=== PATIENT | female | born 1955 ===

== ENCOUNTER 2024-12-31 10:45 | Inpatient (IN) | payer OTHER ==
[~2024-12-31] VITALS: Ht 160 cm; Wt 75.7 kg
[2024-12-31] MEDS ORDERED: HYZAAR 100-12.1 EACH PO (14:43)
[2024-12-31] MEDS ORDERED: TOPROL XL50 M1 PO (14:43)
[2024-12-31] MEDS ORDERED: NORVASC5 MG PO (14:43)
[2024-12-31] MEDS ORDERED: WELLBUTRIN XL150 M1 PO (14:44)
[2024-12-31] MEDS ORDERED: CLONAZEPAM0.5 M1 PO (14:44)
[2024-12-31] MEDS ORDERED: GLIMEPIRIDE1 MG (14:44)
[2024-12-31 14:45] VITALS: BP 145/75
[2024-12-31] MEDS ORDERED: NAPR500T14 PO (14:45)
[2024-12-31] MEDS ORDERED: PROTONIX40 MG PO (14:45)
[2024-12-31 14:50] VITALS: BP 170/87
[2024-12-31 15:16] LABS: RH POSITIVE
[2025-01-06] MEDS ORDERED: HEMOSTATIC MATRIX 1 KIT KIT TOP ONE (12:25)
[2025-01-06] MEDS ORDERED: SURGIFLO APPLICATOR 1 EACH APPL TOP ONE (12:25)
[2025-01-06] MEDS ORDERED: METRONIDAZOLE/SODIUM CHLORIDE 500 MG/100 ML PIGGYBACK IV ONE (12:42)
[2025-01-06] MEDS ORDERED: CEFAZOLIN SODIUM 1,000 MG VIAL ONE (12:43)
[2025-01-06] MEDS ORDERED: MORPHINE SULFATE 4 MG/ML VIAL IV ONE ×3 (12:55→14:05)
[2025-01-06] MEDS ORDERED: KETOROLAC TROMETHAMINE 30 MG VIAL IV NR (13:00)
[2025-01-06] MEDS ORDERED: MORPHINE SULFATE 4 MG/ML CARTRIDGE IV PRN (13:00)
[2025-01-06] MEDS ORDERED: RINGERS SOLUTION,LACTATED 1,000 ML IV SCH (13:00)
[2025-01-06] MEDS ORDERED: SIMETHICONE 125 MG CAPSULE PO SCH (13:00)
[2025-01-06] MEDS ORDERED: KETOROLAC TROMETHAMINE 30 MG VIAL ONE (14:25)
[2025-01-06 14:54] LABS: HEMATOCRIT 35.2 % (36.0-45.00); HEMOGLOBIN 11.8 g/dL (12.0-15.00); MEAN CELL VOLUME 89.2 fL (80.00-100.00); MEAN CORPUSCULAR HEMOGLOBIN 29.9 pg (27.00-32.0); MEAN CORPUSCULAR HGB CONC 33.5 g/dl (32.0-36.0); PLATELET COUNT 161 K/uL (150-450); RED BLOOD COUNT 3.95 M/uL (4.00-6.00); RED CELL DISTRIBUTION WIDTH 14.7 % (11.5-14.5)
[2025-01-06 15:27] LABS: ALBUMIN 3.3 gm/dL (3.4-5.0); CALCIUM 8.8 mg/dL (8.5-10.1); CREATININE SERUM 1.19 mg/dL (0.55-1.02); GFR 44.84; PHOSPHOROUS 3.3 mg/dL (2.5-4.9); POTASSIUM 4.42 mEq/L (3.5-5.1)
[2025-01-06] MEDS ORDERED: DEXTROSE 50 % IN WATER 0.5 G/ML VIAL IV PRN (15:45)
[2025-01-06] MEDS ORDERED: INSULIN LISPRO 1,000 UNIT/10 ML UNITS SUBCUTANEO PRN (15:45)
[2025-01-06] MEDS ORDERED: ENALAPRILAT DIHYDRATE 1.25 MG/ML VIAL IV PRN (15:45)
[2025-01-06] MEDS ORDERED: CEFAZOLIN SODIUM 1,000 MG VIAL IV SCH (17:00)
[2025-01-06] MEDS ORDERED: METOCLOPRAMIDE HCL 5 MG/ML VIAL IV SCH (17:00)
[2025-01-06 18:00] VITALS: BP 145/75; O2SAT 96
[2025-01-06] MEDS ORDERED: ACETAMINOPHEN 500 MG GEL..CAP PO SCH (18:00)
[2025-01-06] MEDS ORDERED: CELECOXIB 200 MG CAPSULE PO SCH (21:00)
[2025-01-06] MEDS ORDERED: GABAPENTIN 300 MG CAPSULE PO SCH (21:00)
[2025-01-06] MEDS ORDERED: DOCUSATE SODIUM 100MG CAP PO SCH (21:00)
[2025-01-06] MEDS ORDERED: AMLODIPINE BESYLATE 5 MG TABLET PO SCH (21:00)
[2025-01-06] MEDS ORDERED: FAMOTIDINE/PF 20 MG/2 ML VIAL IV PUSH SCH (21:00)
[2025-01-07] VITALS: BP 146/63; O2SAT 97
[2025-01-07 01:45] LABS: HEMATOCRIT 32.3 % (36.0-45.00); MEAN CORPUSCULAR HEMOGLOBIN 30.4 pg (27.00-32.0); MEAN CORPUSCULAR HGB CONC 34.1 g/dl (32.0-36.0); PLATELET COUNT 159 K/uL (150-450); RED BLOOD COUNT 3.63 M/uL (4.00-6.00); RED CELL DISTRIBUTION WIDTH 14.6 % (11.5-14.5)
[2025-01-07 02:09] LABS: ALBUMIN 2.8 gm/dL (3.4-5.0); CALCIUM 8.2 mg/dL (8.5-10.1); CREATININE SERUM 1.1 mg/dL (0.55-1.02); GFR 49.1; PHOSPHOROUS 4.1 mg/dL (2.5-4.9); POTASSIUM 4.31 mEq/L (3.5-5.1)
[2025-01-07 04:30] VITALS: BP 122/68
[2025-01-07 08:00] VITALS: BP 124/63
[2025-01-07 08:36] VITALS: BP 124/63; O2SAT 97
[2025-01-07] MEDS ORDERED: METOPROLOL SUCCINATE 50 MG TAB.SR.24H PO SCH (09:00)
[2025-01-07] MEDS ORDERED: LOSARTAN/HYDROCHLOROTHIAZIDE 1 TAB TABLET PO SCH (09:00)
[2025-01-07] MEDS ORDERED: BUPROPION HCL 150 MG TABLET.SA PO SCH (09:00)
[2025-01-07] MEDS ORDERED: ENOXAPARIN SODIUM 40 MG/0.4 ML SYRINGE SUBCUTANEO SCH (09:00)
== END 2025-01-07 12:52 | disposition home or self-care (01) | DRG 741 ==
LOC: O/R 01-06 05:50 → SURH 01-06 10:45 → OB/GYN 01-06 16:30
PROVIDERS: Obstetrics & Gynecology; ADMIT Obstetrics & Gynecology Gynecologic Oncology; ATTEND Obstetrics & Gynecology Gynecologic Oncology
PROC: 07BC4ZZ Excision of Pelvis Lymphatic, Percutaneous Endoscopic Approach (ICD-10-PCS; 2025-01-06)
PROC: 0UT74ZZ Resection of Bilateral Fallopian Tubes, Percutaneous Endoscopic Approach (ICD-10-PCS; 2025-01-06)
PROC: 0UT24ZZ Resection of Bilateral Ovaries, Percutaneous Endoscopic Approach (ICD-10-PCS; 2025-01-06)
PROC: 8E0W4CZ Robotic Assisted Procedure of Trunk Region, Percutaneous Endoscopic Approach (ICD-10-PCS; 2025-01-06)
PROC: 0UT94ZZ Resection of Uterus, Percutaneous Endoscopic Approach (ICD-10-PCS; principal; 2025-01-06 13:00)
DX: C54.1 Malignant neoplasm of endometrium (principal); D36.0 Benign neoplasm of lymph nodes
CPT/HCPCS: 58548; S2900